=== PATIENT | male | born 1945 | race Caucasian/White ===

== ENCOUNTER 2016-05-20 19:03 | Emergency (ER) | payer MEDICARE, OTHER ==
[2016-05-20 20:36] VITALS: BP 158/86
--- NOTE | 2016-05-20 21:17 | UC ---
Lower Extremity/Ankle HPI - HPI Summary HPI Summary: 70 YO MALE STUBBED LEFT GREAT TOE 3 DAYS AGO NOW IT IS RED AND SWOLLEN AND HAS A LARGE TENSE BLISTER NO F/C HX CELLUTLITS HX MRSA - History of Current Complaint Chief Complaint: UCLowerExtremity Stated Complaint: LEFT BIG TOE INJURY Time Seen by Provider: 05/20/16 20:57 Hx Obtained From: Patient Onset/Duration: Sudden Onset, Lasting Days Severity Initially: Mild Severity Currently: None Pain Intensity: 0 Pain Scale Used: 0-10 Numeric Alleviating Factor(s): Rest Able to Bear Weight: Yes - Allergies/Home Medications Allergies/Adverse Reactions: Allergies Allergy/AdvReac Type Severity Reaction Status Date / Time Morphine AdvReac Nausea Verified 05/20/16 20:31 PMH/Surg Hx/FS Hx/Imm Hx Previously Healthy: Yes Endocrine History Of: Denies: Diabetes Cardiovascular History Of: Reports: Hypertension Denies: Pacemaker/ICD - Surgical History Surgical History: Yes Surgery Procedure, Year, and Place: BONE, SKIN AND MUSCLE GRAFTS OF BOTH LOWER LEGS 02/2003 TOTAL OF 18 SURGERIES FOR CRUSHING INJURY; B/L KNEE FOR MENISCUS; Rt FOOT TENDON REPAIR, - Family History Known Family History: Positive: Hypertension - Social History Alcohol Use: Occasionally Substance Use Type: None Smoking Status (MU): Never Smoked Tobacco - Immunization History Most Recent Influenza Vaccination: [id number] Review of Systems Constitutional: Negative Skin: Negative Eyes: Negative ENT: Negative Respiratory: Negative Cardiovascular: Negative Gastrointestinal: Negative Genitourinary: Negative Motor: Negative Neurovascular: Negative Musculoskeletal: Arthralgia Neurological: Negative Psychological: Negative All Other Systems Reviewed And Are Negative: Yes Physical Exam Triage Information Reviewed: Yes Appearance: Well-Appearing, No Pain Distress, Well-Nourished Vital Signs: Initial Vital Signs Temp 99.5 F 05/20/16 20:32 Pulse 73 05/20/16 20:32 Resp 16 05/20/16 20:32 BP 158/86 05/20/16 20:32 Pulse Ox 100 05/20/16 20:32 Vital Signs Reviewed: Yes Eyes: Positive: Conjunctiva Clear ENT: Positive: Hearing grossly normal. Negative: Nasal congestion, Nasal drainage, Trismus, Muffled/hoarse voice Neck: Positive: Supple, Nontender Respiratory: Positive: Lungs clear, Normal breath sounds, No respiratory distress Cardiovascular: Positive: RRR, No Murmur Musculoskeletal: Positive: ROM Intact, Other: - MUTIPLE SCARS/DEFORMITIES THE RESULT OF INJURY AND SURGERIES Psychological Exam: Normal Skin Exam: Other - SEE IMAGE Lower Extremity Course/Dx - Differential Dx/Diagnosis Provider Diagnoses: CELLULITIS LEFT GREAT TOE Discharge - Discharge Plan Condition: Stable Disposition: HOME Prescriptions: Cephalexin CAP* [Keflex 500 CAP*] 500 mg PO QID #28 cap Sulfamethox/Trimethoprim DS* [Bactrim DS 800/160 TAB*] 1 tab PO BID #14 tab Patient Education Materials: Cellulitis (ED) Referrals: Wayne Herndon MD [Primary Care Provider] - 3 Days Additional Instructions: WARM SOAPY SOAKS 4X DAY ELEVATE A CULTURE IS PENDING...WHEN WE GET THE RESULTS BACK WE MAY BE ABLE TO HAVE YOU TAKE JUST ONE ANTIBIOTIC RECHECK IN 3 DAYS IF UNABLE TO GET SEEN AT YOUR MD'S YOU MAY RETURN HERE TO ER FOR NEW OR WORSENING SYMPTOMS Images Feet (Multiple View): 1 - LARGE TENSE BULLAE THAT SPONTANEOUSLY RUPTURE IN XR 2 - BRIGHT RED DISTAL TO LINE, NAIL INTACT
[2016-05-20] MEDS ORDERED: Cephalexin CAP* 500 MG PO ONE ×2 (21:47)
[2016-05-20] MEDS ORDERED: Sulfamethox/Trimethoprim DS 800/160* TAB PO ONE (21:48)
--- NOTE | 2016-05-20 21:49 | RAD ---
INDICATION: Erythema and soft tissue swelling involving the left great toe after injury 3 nights earlier. TECHNIQUE: 3 views of the left great toe were obtained. FINDINGS: Degenerative changes include sclerotic change at the left great toe metatarsal phalangeal joint with a small degree of lateral subluxation of the proximal phalanx relative to the metatarsal. There is soft tissue swelling overlying the medial aspect of the proximal left great toe phalanx. IMPRESSION: Degenerative changes as described above with soft tissue swelling overlying the medial margin of the left great toe proximal phalanx.
[2016-05-20] MEDS: Sulfamethox/Trimethoprim DS 800/160* TAB PO ONE ×2 (22:02→22:03)
== END 2016-05-20 22:09 | disposition home or self-care (01) ==
LOC: UCCORT 19:03
DX: L03.032 Cellulitis of left toe (principal); Z88.5 Allergy status to narcotic agent; I10 Essential (primary) hypertension
CPT/HCPCS: 87070; 87076; 87077; 87181; 87186; 87205; 87640; 87641; 99213; A9270-GY; G0463